=== PATIENT | female | born 1970 | race Caucasian/White ===

== ENCOUNTER 2021-10-04 11:38 | Emergency (ER) | payer BC ==
[~2021-10-04] VITALS: Ht 160 cm; Wt 67.1 kg
[~2021-10-04 11:38] MED LIST: AZILECT0.5 MG PO; DESYREL 50 MG T50 MG PO; RYTARY ER 36.21 EACH PO; ZOFRAN ODT 4 MG4 MG PO
[2021-10-04 11:56] LABS: HEMOGLOBIN 13.4 gm/dl (12.3-15.3); RED BLOOD COUNT 5.01 M/UL (4.00-5.10); WHITE BLOOD COUNT 7.6 K/UL (4.5-11.0)
[2021-10-04 12:25] LABS: BUN/CREATININE RATIO 11 (0-10)
[2021-10-04] MEDS ORDERED: PROTONIX40 MG PO (14:14)
== END 2021-10-04 14:15 | disposition home or self-care (01) ==
LOC: ER1 11:38
PROVIDERS: Emergency Medicine
DX: R10.9 Unspecified abdominal pain (principal); R11.2 Nausea with vomiting, unspecified; Z87.442 Personal history of urinary calculi; Z90.49 Acquired absence of other specified parts of digestive tract
CPT/HCPCS: 80053; 81001; 82550; 82553; 83690; 83874; 84484; 84703; 85025; 87077; 87086; 87186; 96374; 96375; 96376; 99284; C9113; J1170; J1885; J2270; J2405; J2550